=== PATIENT | female | born 1930 | race Caucasian/White ===

== ENCOUNTER 2016-09-16 22:22 | Inpatient (IN) | payer MEDICARE, MEDICAID ==
[~2016-09-16] VITALS: Ht 158.8 cm; Wt 67.7 kg
[~2016-09-16 22:22] MED LIST: CLOP75TA PO; DIOV80TA2 PO; FURO20 PO; GLIM1TAB PO; ISOS20TA38 PO; LANSO15 PO; METO25 PO; ROSU40 PO; TRAM100T19 PO
[2016-09-16 22:33] VITALS: BP 198/103; PULSE 101; RESP 21; TEMP 97.5; O2SAT 95
[2016-09-16] MEDS ORDERED: ONDANSETRON HCL 4 MG/2 ML VIAL IVP ONE (23:00)
[2016-09-16] MEDS ORDERED: SODIUM CHLORIDE 0.9% FLUSH 10 ML FLUSH IV FLUSH PRN (23:00)
[2016-09-16 23:13] LABS: AUTOMATED NEUTROPHIL # 10.1 TH/MM3 (1.8-7.7); BASOPHIL # 0.1 TH/MM3 (0-0.2); BASOPHIL % 0.6 % (0.0-2.0); EOSINOPHIL # 0.1 TH/MM3 (0-0.4); EOSINOPHIL % 0.6 % (0.0-4.0); LYMPH % 17.9 % (9.0-44.0); LYMPHOCYTE # 2.4 TH/MM3 (1.0-4.8); MEAN CELL VOLUME 85.6 FL (80.0-100.0); MEAN CORPUSCULAR HEMOGLOBIN 28.8 PG (27.0-34.0); MEAN CORPUSCULAR HGB CONC 33.7 % (32.0-36.0); MONO % 6.3 % (0.0-8.0); NEUT % 74.6 % (16.0-70.0); PLATELET COUNT 306 TH/MM3 (150-450); RED BLOOD COUNT 4.09 MIL/MM3 (4.00-5.30); RED CELL DISTRIBUTION WIDTH 16.8 % (11.6-17.2); WHITE BLOOD COUNT 13.6 TH/MM3 (4.0-11.0)
[2016-09-16 23:16] LABS: HEMO FLAGS AUTO DIFF
[2016-09-16] MEDS ORDERED: MORPHINE SULFATE 4 MG/ML INJ IV PUSH ONE (23:30)
[2016-09-16] MEDS ORDERED: SODIUM CHLORID 0.9% 500 ML INJ 500 ML IV ONE (23:30)
[2016-09-16 23:36] VITALS: RESP 18; O2SAT 95
[2016-09-16 23:41] LABS: ALKALINE PHOSPHATASE 63 U/L (45-117); ALT (GPT) 19 U/L (10-53); ANION GAP 7 MEQ/L (5-15); AST (GOT) 27 U/L (15-37); BICARBONATE 26.7 MEQ/L (21.0-32.0); BLOOD UREA NITROGEN 15 MG/DL (7-18); CHLORIDE 89 MEQ/L (98-107); GLOMERULAR FILTRATION RATE 61 ML/MIN (>89); TOTAL BILIRUBIN ADULT 0.3 MG/DL (0.2-1.0)
[2016-09-16 23:42] LABS: POTASSIUM 4.7 MEQ/L (3.5-5.1)
[2016-09-16 23:45] LABS: SODIUM (NA) 123 MEQ/L (136-145)
[2016-09-16 23:57] VITALS: BP 164/104; PULSE 100; RESP 18; O2SAT 95
[2016-09-17] VITALS (21 sets, daily range): BP systolic 118–204; BP diastolic 59–96; PULSE 60–120; RESP 16–34; TEMP 97.4–98.3; O2SAT 95–100
[2016-09-17] MEDS ORDERED: KETOROLAC TROMETHAMINE 30 MG/ML (IVP) VIAL IV PUSH ONE (00:30)
[2016-09-17 00:42] LABS: SCAN/DIFF AUTO DIFF CONFIRMED
[2016-09-17 00:44] LABS: BLOOD, URINE NEG (NEG); COMMENT (UR) CULT NOT INDICATED; CULTURE IF INDICATED CULT NOT INDICATED; GLUCOSE,URINE NEG (NEG); KETONE, URINE NEG (NEG); NITRITE,URINE NEG (NEG); URINE COLOR LIGHT-YELLOW (YELLW/STRAW)
[2016-09-17] MEDS ORDERED: IOHEXOL 350 MG/ML 10 ML VIAL (for RAD DIAG) IV ONE (01:18)
--- NOTE | 2016-09-17 01:29 | RADRPT ---
EXAM DATE/TIME: 09/17/2016 01:15 [facility] COMPARISON: No previous studies available for comparison. INDICATIONS : Abdomen with nausea and vomiting. IV CONTRAST: 85 cc Omnipaque 350 (iohexol) IV ORAL CONTRAST: No oral contrast ingested. RADIATION DOSE: 12.39 CTDIvol (mGy) MEDICAL HISTORY : Cardiovascular disease. Hypertension. Diabetes mellitus type 2. SURGICAL HISTORY : CABG Appendectomy. ENCOUNTER: Initial ACUITY: 1 day PAIN SCALE: 8/10 LOCATION: Bilateral abdomen TECHNIQUE: Volumetric scanning of the abdomen and pelvis was performed. Using automated exposure control and ad justment of the mA and/or kV according to patient size, radiation dose was kept as low as reasonably achievable to obtain optimal diagnostic quality images. FINDINGS: LOWER LUNGS: Status post median sternotomy with mild cardiomegaly and bilateral effusions. There is a moderate-siz ed hiatal hernia. Bilateral cortical scarring is present. LIVER: Homogeneous density without lesion. There is no dilation of the biliary tree. No calcified gallston es. SPLEEN: Normal size without lesion. PANCREAS: Within normal limits. KIDNEYS: Normal in size and shape. There is no mass, stone or hydronephrosis. ADRENAL GLANDS: Within normal limits. VASCULAR: There is no aortic aneurysm. BOWEL/MESENTERY: The stomach, and colon demonstrate no acute abnormality. There are multiple loops of nondilated air- containing small bowel with several small air-fluid levels. There is no free intraperitoneal air or f luid. ABDOMINAL WALL: Within normal limits. RETROPERITONEUM: There is no lymphadenopathy. BLADDER: No wall thickening or mass. REPRODUCTIVE: There is a 2.3 x 2 cm cystic structure in the right adnexa most consistent with an ovarian cystic les ion. INGUINAL: There is no lymphadenopathy or hernia. MUSCULOSKELETAL: Osteopenia, degenerative changes and scoliosis are present. CONCLUSION: 1. Small bilateral pleural effusions. 2. Bilateral renal cortical scarring. 3. Moderate-sized hiatal hernia. 4. Status post median sternotomy with mild cardiomegaly. 5. Nonobstructive bowel gas pattern with multiple loops of nondilated air-containing small bowel keith ral small air-fluid levels which may represent a mild ileus and/or gastroenteritis. 6. Small right ovarian cystic lesion. Frederick Vargas MD on September 17, 2016 at 1:24 Board Certified Radiologist. This report was verified electronically.
[2016-09-17] MEDS ORDERED: DILTIAZEM HCL 25 MG/5 ML VIAL ONE (01:38)
[2016-09-17] MEDS ORDERED: FUROSEMIDE 40 MG/4 ML VIAL ONE (01:41)
[2016-09-17] MEDS ORDERED: MORPHINE SULFATE 4 MG/ML INJ IV PUSH ONE (01:45)
[2016-09-17 02:01] LABS: BLOOD GAS BASE EXCESS -5.6 mmol/L (-2-2); BLOOD GAS CARBOXYHEMOGLOBIN 0.9 % (0-4); BLOOD GAS HCO3 20 mmol/L (22-26); BLOOD GAS METHEMOGLOBIN 0.5 % (0-2); BLOOD GAS O2 HGB SATURATION 95 % (90-100); BLOOD GAS OXYGEN CONTENT 17.1 Vol % (12.0-20.0); BLOOD GAS PCO2 46 mmHg (38-42); BLOOD GAS PO2 87 mmHG (61-120); BLOOD GAS TOTAL HGB 12.8 G/DL (12.0-16.0); TEMP CORR TO 98.6
[2016-09-17 02:02] LABS: CRITICAL VALUE YES; DRAW SITE LT RADIAL; FIO2 35 %; NUMBER OF ARTERIAL PUNCTURES 1; OXYGEN DEVICE BiPAP; STAT YES; ULNAR PULSE PRESENT; VENT SETTINGS IPAP15/EPAP5
[2016-09-17] MEDS: ONDANSETRON HCL 4 MG/2 ML VIAL IV PRN ×3 (02:10→17:20)
[2016-09-17] MEDS ORDERED: APIX5TAB PO (02:14)
[2016-09-17] MEDS ORDERED: DEXI60CA PO (02:14)
[2016-09-17] MEDS ORDERED: ISOS10TA3 PO (02:14)
[2016-09-17] MEDS ORDERED: VALS1TAB64 PO (02:14)
[2016-09-17] MEDS ORDERED: METO50TA PO (02:14)
[2016-09-17] MEDS ORDERED: AMIT8CAP6 PO (02:14)
[2016-09-17] MEDS ORDERED: FURO20TA PO (02:14)
[2016-09-17] MEDS ORDERED: GLIM1TAB PO (02:14)
[2016-09-17] MEDS ORDERED: ZOFR4TAB PO (02:14)
[2016-09-17 02:15] LABS: APTT (PATIENT) 27.3 SEC (24.3-30.1); INTERNATIONAL NORMALIZED RATIO 1.1 RATIO; PROTHROMBIN TIME - PATIENT 11.7 SEC (9.8-11.6)
--- NOTE | 2016-09-17 02:32 | RADRPT ---
EXAM DATE/TIME: 09/17/2016 01:54 [facility] COMPARISON: CHEST SINGLE AP, December 27, 2013, 15:08. INDICATIONS : Shortness of breath. MEDICAL HISTORY : None. SURGICAL HISTORY : None. ENCOUNTER: Initial ACUITY: 1 day PAIN SCORE: 0/10 LOCATION: Bilateral chest FINDINGS: A single AP erect portable view of the chest was obtained and again demonstrates the patient is statu s post median sternotomy for bypass grafting procedure. The heart size is mildly prominent. There are no streaky perihilar and bibasilar opacities. The bony thorax remains intact. CONCLUSION: 1. Mild streaky pulmonary infiltrates which could indicate early pulmonary edema. 2. Status post median sternotomy. Frederick Vargas MD on September 17, 2016 at 2:29 Board Certified Radiologist. This report was verified electronically.
--- NOTE | 2016-09-17 02:52 | PD ---
HPI Chief Complaint: Abdominal Pain Time Seen by Provider: 22:48 Travel History International Travel<30 days: No Contact w/Intl Traveler<30days: No Traveled to known affect area: No History of Present Illness HPI Patient is an 86-year-old female presents emergency Department with abdominal pain fairly generalized. Patient states she's had this in the past but does not know causes it. States she's been having nausea and nonbilious nonbloody vomiting approximately 5 episodes this evening. She denies any diarrhea or constipation. She is in fairly good spirits on arrival. She states the pain is sharp in nature and waxing and waning. She denies any injuries. Denies any chest pain or shortness of breath. PFSH Past Medical History Arthritis: Yes Cerebrovascular Accident: No Diabetes: Yes Patient Takes Glucophage: Yes Diminished Hearing: No Hypertension: Yes Myocardial Infarction: Yes Past Surgical History Appendectomy: Yes Coronary Artery Bypass Graft: Yes (X 4) Social History Alcohol Use: No Tobacco Use: Yes (1 PINCH OF CHEW PER DAY) Substance Use: No Allergies-Medications (Allergen,Severity, Reaction): Coded Allergies: Morphine (Verified Allergy, Severe, 09/16/16) Reported Meds & Prescriptions Reported Meds & Active Scripts Active Reported Zofran (Ondansetron HCl) 4 Mg Tab 4 Mg PO Q6HR PRN Valsartan 80 Mg Tab 80 Mg PO BID Dexilant (Dexlansoprazole) 60 Mg Cap 60 Mg PO DAILY Glimepiride 1 Mg Tab 1 Mg PO DAILY Take with breakfast or first main meal Isosorbide Mononitrate 10 Mg Tab 30 Mg PO DAILY Take 2 doses 7 hours apart. Metoprolol Tartrate 50 Mg Tab 50 Mg PO TID Furosemide 20 Mg Tab 20 Mg PO DAILY Amitiza (Lubiprostone) 8 Mcg Cap 8 Mg PO BID Eliquis (Apixaban) 5 Mg Tab 5 Mg PO BID Review of Systems Except as stated in HPI: all other systems reviewed are Neg Physical Exam Narrative GENERAL: Well-developed well-nourished, quite pleasant in no apparent distress. SKIN: Focused skin assessment warm/dry. HEAD: Atraumatic. Normocephalic. EYES: Pupils equal and round. No scleral icterus. No injection or drainage. ENT: No nasal bleeding or discharge. Mucous membranes pink and moist. NECK: Trachea midline. No JVD. CARDIOVASCULAR: Regular rate and rhythm. No murmur appreciated. RESPIRATORY: No accessory muscle use. Clear to auscultation. Breath sounds equal bilaterally. GASTROINTESTINAL: Abdomen soft, non-tender, nondistended. Hepatic and splenic margins not palpable. No CVA tenderness, no rebound no percussive tenderness. MUSCULOSKELETAL: No obvious deformities. No clubbing. No cyanosis. No edema. NEUROLOGICAL: Awake and alert. No obvious cranial nerve deficits. Motor grossly within normal limits. Normal speech. PSYCHIATRIC: Appropriate mood and affect; insight and judgment normal. Data Data Last Documented VS Vital Signs Date Time Temp Pulse Resp B/P Pulse Ox O2 Delivery O2 Flow Rate FiO2 09/17/16 02:15 83 26 204/96 97 BiPAP 35 09/17/16 00:35 3 09/16/16 22:33 97.5 Orders Complete Blood Count With Diff (09/16/16 22:48) Comprehensive Metabolic Panel (09/16/16 22:48) Lipase (09/16/16 22:48) Urinalysis - C+S If Indicated (09/16/16 22:48) Iv Access Insert/Monitor (09/16/16 22:48) Ecg Monitoring (09/16/16 22:48) Oximetry (09/16/16 22:48) Ondansetron Inj (Zofran Inj) (09/16/16 23:00) Sodium Chloride 0.9% Flush (Ns Flush) (09/16/16 23:00) Electrocardiogram (09/16/16 22:48) Troponin I (09/16/16 22:48) Morphine Inj (Morphine Inj) (09/16/16 23:30) Sodium Chlorid 0.9% 500 Ml Inj (Ns 500 M (09/16/16 23:30) Ct Abd/Pel W Iv Contrast(Rout) (09/17/16 ) Ketorolac Inj (Toradol Inj) (09/17/16 00:30) Lactic Acid (09/17/16 00:41) Iohexol 350 Inj (Omnipaque 350 Inj) (09/17/16 01:18) Morphine Inj (Morphine Inj) (09/17/16 01:45) Electrocardiogram (09/17/16 ) Diltiazem Inj (Cardizem Inj) (09/17/16 01:38) Furosemide Inj (Lasix Inj) (09/17/16 01:41) Act Partial Throm Time (Ptt) (09/17/16 01:53) Prothrombin Time / Inr (Pt) (09/17/16 01:53) Comprehensive Metabolic Panel (09/17/16 01:53) B-Type Natriuretic Peptide (09/17/16 01:53) Troponin I (09/17/16 01:53) Chest, Single Ap (09/17/16 ) Arterial Blood Gas (Abg) (09/17/16 01:51) Admit Order (Ed Use Only) (09/17/16 ) Labs Laboratory Tests Test 09/16/16 09/17/16 09/17/16 09/17/16 23:00 00:31 00:50 01:50 Sodium Level 123 MEQ/L Potassium Level 4.7 MEQ/L Chloride Level 89 MEQ/L Carbon Dioxide Level 26.7 MEQ/L Anion Gap 7 MEQ/L Blood Urea Nitrogen 15 MG/DL Creatinine 0.88 MG/DL Estimat Glomerular Filtration 61 ML/MIN Rate Random Glucose 111 MG/DL Calcium Level 8.7 MG/DL Total Bilirubin 0.3 MG/DL Aspartate Amino Transf 27 U/L (AST/SGOT) Alanine Aminotransferase 19 U/L (ALT/SGPT) Alkaline Phosphatase 63 U/L Troponin I 0.04 NG/ML Total Protein 7.1 GM/DL Albumin 3.3 GM/DL Lipase 132 U/L White Blood Count 13.6 TH/MM3 Red Blood Count 4.09 MIL/MM3 Hemoglobin 11.8 GM/DL Hematocrit 35.0 % Mean Corpuscular Volume 85.6 FL Mean Corpuscular Hemoglobin 28.8 PG Mean Corpuscular Hemoglobin 33.7 % Concent Red Cell Distribution Width 16.8 % Platelet Count 306 TH/MM3 Mean Platelet Volume 8.5 FL Neutrophils (%) (Auto) 74.6 % Lymphocytes (%) (Auto) 17.9 % Monocytes (%) (Auto) 6.3 % Eosinophils (%) (Auto) 0.6 % Basophils (%) (Auto) 0.6 % Neutrophils # (Auto) 10.1 TH/MM3 Lymphocytes # (Auto) 2.4 TH/MM3 Monocytes # (Auto) 0.9 TH/MM3 Eosinophils # (Auto) 0.1 TH/MM3 Basophils # (Auto) 0.1 TH/MM3 CBC Comment AUTO DIFF Differential Comment AUTO DIFF CONFIRMED B-Type Natriuretic Peptide 539 PG/ML Urine Color LIGHT-YELLOW Urine Turbidity CLEAR Urine pH 7.0 Urine Specific [place] 1.005 Urine Protein 30 mg/dL Urine Glucose (UA) NEG mg/dL Urine Ketones NEG mg/dL Urine Occult Blood NEG Urine Nitrite NEG Urine Bilirubin NEG Urine Urobilinogen LESS THAN 2.0 MG/DL Urine Leukocyte Esterase NEG Urine RBC LESS THAN 1 /hpf Urine WBC 2 /hpf Microscopic Urinalysis Comment CULT NOT INDICATED Lactic Acid Level 1.1 mmol/L Prothrombin Time 11.7 SEC Prothromb Time International 1.1 RATIO Ratio Activated Partial 27.3 SEC Thromboplast Time Test 09/17/16 09/17/16 01:51 02:45 Blood Gas Puncture Site LT RADIAL Blood Gas Patient Temperature 98.6 Blood Gas HCO3 20 mmol/L Blood Gas Base Excess -5.6 mmol/L Blood Gas Oxygen Saturation 95 % Arterial Blood pH 7.26 Arterial Blood Partial 46 mmHg Pressure CO2 Arterial Blood Partial 87 mmHG Pressure O2 Arterial Blood Oxygen Content 17.1 Vol % Arterial Blood 0.9 % Carboxyhemoglobin Arterial Blood Methemoglobin 0.5 % Blood Gas Hemoglobin 12.8 G/DL Oxygen Delivery Device BiPAP Blood Gas Ventilator Setting [id number]/[id number] Blood Gas Inspired Oxygen 35 % Sodium Level 123 MEQ/L Potassium Level 4.8 MEQ/L Chloride Level 89 MEQ/L Carbon Dioxide Level 24.9 MEQ/L Anion Gap 9 MEQ/L Blood Urea Nitrogen 15 MG/DL Creatinine 1.03 MG/DL Estimat Glomerular Filtration 51 ML/MIN Rate Random Glucose 206 MG/DL Calcium Level 8.9 MG/DL Total Bilirubin 0.3 MG/DL Aspartate Amino Transf 23 U/L (AST/SGOT) Alanine Aminotransferase 21 U/L (ALT/SGPT) Alkaline Phosphatase 74 U/L Troponin I 0.04 NG/ML Total Protein 7.4 GM/DL Albumin 3.5 GM/DL [facility] Medical Decision Making Medical Screen Exam Complete: Yes Emergency Medical Condition: Yes Interpretation(s) Initial EKG shows atrial fibrillation a rate of 107, left axis deviation, criteria for LVH and a normal R wave progression. Nonspecific ST segment changes. This is an abnormal EKG.. Repeat EKG had oh to 18 after rate control shows age fibrillation a rate of 88, normal axis and normal R-wave progression. No concerning ST segment changes. Limited interpretation secondary to artifact in leads 1 and aVL lead 3 and an overall motion artifact. This an abnormal EKG but nonischemic. Differential Diagnosis Abdominal pain, pancreatitis, cholecystitis, gastritis, gastric enteritis, bowel obstruction less likely. Narrative Course Patient initially calm and comfortable and appears well. Her labs do show a minimally elevated white blood cell count and will pursue a CAT scan. I highly doubt dissection or cardiac etiologies. After the patient's daughter arrived the patient became complaining of some more pain. Initially morphine was ordered for her but she states she did not want this as it makes her very dizzy. She was given Toradol and then went to CAT scan. Approximately 01:30 when she returned from CAT scan she had a change in status. I arrived the bedside dependent patient diaphoretic and gasping for air and stating she was in significant pain all over. She was given morphine. The patient then stated that she was really only short of breath and did not have any pain. She was satting 88 on room air. On reexamine her clear lung sounds are now developed bibasilar rales. Patient does have some JVD is well. Patient daughter states the patient has no history of congestive heart failure but that the patient was told by her soil science technical officer that she has fluid on her lungs needs to take her water pills at all time. The patient's labs had returned and showed a sodium of 123 and the plan was to admit her for hyponatremia at the bare minimum. The patient was placed on nonrebreather was temporizer for the moment. Respiratory arrived and placed on patient on BiPAP at my request. She began to improve slowly over the next 30 minutes. She was given Lasix 40 mg IV cautiously dosing as the patient does have hyponatremia. Chest x-ray did confirm that should patient have developed pulmonary edema. She had only received 500 cc from EMS as well as another 500 cc from [place] which coupled with lying down flat on a stretcher is probably triggered a CHF exacerbation. She was also in atrial fibrillation RVR to rates of 1 5170 after returning from CAT scan. She was given Cardizem loading dose of 20 mg IV. Overall the patient has improved in the emergency department from this change in status. Discussed the results with patient's family and the patient and discussed my concern that the patient does have congestive heart failure. On second revisit the patient states her pain is seemingly improved of her abdomen. Patient was discussed with Dr. Wheatley for admission and he is agreeable. Procedures Procedure Narrative Aggregate critical care time was 35 minutes. Time to perform other separately billable procedures was not included in the critical care time. My time did not include minutes spent treating any other patients simultaneously or on activities that did not directly contribute to the patient's treatment. The services I provided to this patient were to treat and/or prevent clinically significant deterioration that could result in: , disability, organ failure. I provided critical care services requiring my management, as noted below: Chart data review, documentation time, medication orders and management, vital sign assessments/reviewing monitor data, ordering and reviewing lab tests, ordering and interpreting/reviewing x-rays and diagnostic studies, care of the patient and discussion of the patient with the admitting physicians. Diagnosis Primary Impression: Acute respiratory failure with hypoxia Additional Impressions: Pulmonary edema Abdominal pain Admitting Information Admitting Physician Requests: Admit Condition: Christoph Roldan MD September 17, 2016 02:52
[2016-09-17 03:20] LABS: ALKALINE PHOSPHATASE 74 U/L (45-117); ALT (GPT) 21 U/L (10-53); ANION GAP 9 MEQ/L (5-15); AST (GOT) 23 U/L (15-37); BICARBONATE 24.9 MEQ/L (21.0-32.0); BLOOD UREA NITROGEN 15 MG/DL (7-18); CHLORIDE 89 MEQ/L (98-107); GLOMERULAR FILTRATION RATE 51 ML/MIN (>89); POTASSIUM 4.8 MEQ/L (3.5-5.1); TOTAL BILIRUBIN ADULT 0.3 MG/DL (0.2-1.0)
[2016-09-17 03:22] LABS: SODIUM (NA) 123 MEQ/L (136-145)
[2016-09-17] MEDS ORDERED: MORPHINE SULFATE 4 MG/ML INJ IV PRN (03:45)
[2016-09-17] MEDS ORDERED: GLUCAGON 1 MG/ML VIAL OTHER PRN (03:45)
[2016-09-17] MEDS ORDERED: SODIUM CHLORIDE 0.9% FLUSH 10 ML FLUSH PRN (03:45)
[2016-09-17] MEDS ORDERED: CHLORHEXIDINE GLUCONATE 2 % 1 PACK (2 CLOTHS) TOP PRN (03:45)
[2016-09-17] MEDS ORDERED: ACETAMINOPHEN 325 MG TAB PO PRN (03:45)
[2016-09-17] MEDS ORDERED: DEXTROSE 50% IN WATER 50 ML VIAL(D50) IV PRN (03:45)
[2016-09-17] MEDS ORDERED: TEMAZEPAM 15 MG CAP PO PRN (03:45)
[2016-09-17] MEDS ORDERED: RESP: ALBUTEROL 2.5 MG/IPRATROPIUM 0.5 MG NEB (PRN) INH (03:45)
[2016-09-17] MEDS ORDERED: MISCELLANEOUS NURSING INFORMATION XX SCH (03:45)
[2016-09-17] MEDS ORDERED: METOCLOPRAMIDE HCL 10 MG/2 ML VIAL IV PRN (03:45)
--- NOTE | 2016-09-17 03:46 | HHI.HP ---
HPI Service Critical Care Medicine Primary Care Physician Kamari Felix MD Admission Diagnosis Pulmonary Edema, Afib RVR, Hyponatremia, Hypoxic respiratory failure Diagnosis: Travel History International Travel<30 Days: No Contact w/Intl Traveler <30 Da: No Traveled to Known Affected Are: No History of Present Illness 86-year-old female with history of hypertension dyslipidemia diabetes status post CABG 4 vessels presented with abdominal pain. Patient was taken to CAT scan that shows nonobstructive pattern with mild ileus. She was started on IV fluids resuscitation, however developed rapid A. fib with RVR mild to moderate pleural pulmonary edema on the x-ray and respiratory distress requiring diuresis and BiPAP. Review of Systems ROS Unable to obtain patient is on facemask BiPAP Past Family Social History Allergies: Coded Allergies: Morphine (Verified Allergy, Severe, 09/16/16) Past Medical History Arthritis Diabetes Hypertension Atrial fibrillation Coronary artery disease post Myocardial Infarction Past Surgical History Appendectomy Coronary Artery Bypass Graft Reported Medications Reported Meds & Active Scripts Active Reported Zofran (Ondansetron HCl) 4 Mg Tab 4 Mg PO Q6HR PRN Valsartan 80 Mg Tab 80 Mg PO BID Dexilant (Dexlansoprazole) 60 Mg Cap 60 Mg PO DAILY Glimepiride 1 Mg Tab 1 Mg PO DAILY Take with breakfast or first main meal Isosorbide Mononitrate 10 Mg Tab 30 Mg PO DAILY Take 2 doses 7 hours apart. Metoprolol Tartrate 50 Mg Tab 50 Mg PO TID Furosemide 20 Mg Tab 20 Mg PO DAILY Amitiza (Lubiprostone) 8 Mcg Cap 8 Mg PO BID Eliquis (Apixaban) 5 Mg Tab 5 Mg PO BID Active Ordered Medications Current Medications Medications (Trade) Dose Ordered Sig/Bill Route PRN Reason Start Time Stop Time Status Last Admin Dose Admin Apixaban (Eliquis) 5 mg BID PO 09/17/16 09:00 Future Hold Isosorbide Mononitrate (Ismo) 30 mg DAILY@07 PO 09/17/16 07:00 Pantoprazole Sodium (Protonix) 40 mg DAILY PO 09/17/16 09:00 Sodium Chloride (NS Flush) 2 ml UNSCH PRN .XX FLUSH AFTER USING IV ACCESS 09/17/16 03:45 Sodium Chloride (NS Flush) 2 ml BID .XX 09/17/16 09:00 Acetaminophen (Tylenol) 650 mg Q6H PRN PO PAIN 1-10 AND/OR FEVER >101F 09/17/16 03:45 Morphine Sulfate (Morphine Inj) 2 mg Q2H PRN IV PAIN SCALE 6 TO 10 09/17/16 03:45 Ondansetron HCl (Zofran Inj) 4 mg Q6H PRN IV NAUSEA OR VOMITING 09/17/16 03:45 09/17/16 02:10 Metoclopramide HCl (Reglan Inj) 10 mg Q6H PRN IV NAUSEA OR VOMITING 09/17/16 03:45 Docusate Sodium (Colace) 100 mg BID PO 09/17/16 09:00 Temazepam (Restoril) 15 mg HS PRN PO INSOMNIA 09/17/16 03:45 Heparin Sodium (Porcine) (Heparin Inj) 5,000 units Q12H SQ 09/17/16 04:00 Miscellaneous Information 1 Q361D XX 09/17/16 03:45 Chlorhexidine Gluconate (Chlorhexidine 2% Cloth) 3 pack Taper DAILY@04 TOP 09/17/16 04:00 09/13/17 03:59 Chlorhexidine Gluconate (Chlorhexidine 2% Cloth) 3 pack UNSCH PRN TOP HYGIENIC CARE 09/17/16 03:45 Sodium Chloride (Sodium Chloride) 1 gm QID PO 09/17/16 09:00 Dextrose (D50w (Vial) Inj) 50 ml UNSCH PRN IV HYPOGLYCEMIA-SEE COMMENTS 09/17/16 03:45 Glucagon (Glucagon Inj) 1 mg UNSCH PRN OTHER HYPOGLYCEMIA-SEE COMMENTS 09/17/16 03:45 Diltiazem HCl 30 mg 30 mg QID PO 09/17/16 09:00 Potassium Chloride 100 ml @ 50 mls/hr Q2H PRN IV For Potassium 2.8 - 3.2 mEq/L 09/17/16 04:00 Potassium Chloride (KCl 20 Meq Premix Inj) 100 ml @ 50 mls/hr Q2H PRN IV For Potassium 2.8 - 3.2 mEq/L 09/17/16 04:00 Potassium Bicarb/ Potassium Chloride 50 meq 50 meq UNSCH PRN PO For Potassium 3.3 - 3.5 mEq/L 09/17/16 04:00 Potassium Chloride 100 ml @ 25 mls/hr UNSCH PRN IV For Potassium 3.3 - 3.5 mEq/L 09/17/16 04:00 Potassium Chloride 100 ml @ 50 mls/hr Q2H PRN IV For Potassium 3.3 - 3.5 mEq/L 09/17/16 04:00 Magnesium Sulfate/ Sodium Chloride (Magnesium Sulfate Inj/NS Inj) 100 ml @ 50 mls/hr UNSCH PRN IV For Magnesium 0.9 - 1.1 mg/dL 09/17/16 04:00 Magnesium Oxide 800 mg 800 mg UNSCH PRN PO For Magnesium 1.2 - 1.6 mg/dL 09/17/16 04:00 Magnesium Sulfate/ Sodium Chloride (Magnesium Sulfate Inj/NS Inj) 100 ml @ 50 mls/hr UNSCH PRN IV For Magnesium 1.2 - 1.6 mg/dL 09/17/16 04:00 Potassium Phosphate 2000 mg 2,000 mg Q4H PRN PO For Phosphorus < 2.5 mg/dL 09/17/16 04:00 Sodium Phosphate/ Sodium Chloride (Sodium Phosphate Inj/NS 250 ml Inj) 250 ml @ 42 mls/hr UNSCH PRN IV For Phosphorus < 2.5 mg/dL 09/17/16 04:00 Potassium Phosphate (K-Phos) 2,000 mg UNSCH PRN PO/TUBE SEE LABEL COMMENTS 09/17/16 04:00 Family History Noncontributory Social History No alcohol or illicit drug abuse 1 pinch of tobacco daily Physical Exam Vital Signs Vital Signs Date Time Temp Pulse Resp B/P Pulse Ox O2 Delivery O2 Flow Rate FiO2 09/17/16 03:32 77 20 125/68 97 BiPAP 35 09/17/16 02:56 77 20 168/77 97 BiPAP 35 09/17/16 02:15 83 26 204/96 97 BiPAP 35 09/17/16 01:56 85 30 132/71 96 BiPAP 35 09/17/16 01:45 96 35 09/17/16 01:45 95 BiPAP 35 09/17/16 00:35 115 26 95 Nasal Cannula 3 09/16/16 23:57 100 18 164/104 95 Room Air 09/16/16 23:36 18 95 Room Air 09/16/16 22:33 97.5 101 21 198/103 95 Room Air Physical Exam GENERAL: Elderly woman on facemask BiPAP SKIN: Warm and dry. HEAD: Normocephalic. EYES: No scleral icterus. No injection or drainage. NECK: Supple, trachea midline. No JVD or lymphadenopathy. CARDIOVASCULAR: Regular rate and rhythm without murmurs, gallops, or rubs. RESPIRATORY: Breath sounds equal bilaterally. No accessory muscle use. GASTROINTESTINAL: Abdomen soft, non-tender, nondistended. MUSCULOSKELETAL: No cyanosis, or edema. BACK: Nontender without obvious deformity. No CVA tenderness. EXTREMITIES: No clubbing cyanosis or edema Laboratory Laboratory Tests Test 09/16/16 09/17/16 09/17/16 09/17/16 23:00 00:31 00:50 01:50 Sodium Level 123 Potassium Level 4.7 Chloride Level 89 Carbon Dioxide Level 26.7 Anion Gap 7 Blood Urea Nitrogen 15 Creatinine 0.88 Estimat Glomerular Filtration 61 Rate Random Glucose 111 Calcium Level 8.7 Total Bilirubin 0.3 Aspartate Amino Transf 27 (AST/SGOT) Alanine Aminotransferase 19 (ALT/SGPT) Alkaline Phosphatase 63 Troponin I 0.04 Total Protein 7.1 Albumin 3.3 Lipase 132 White Blood Count 13.6 Red Blood Count 4.09 Hemoglobin 11.8 Hematocrit 35.0 Mean Corpuscular Volume 85.6 Mean Corpuscular Hemoglobin 28.8 Mean Corpuscular Hemoglobin 33.7 Concent Red Cell Distribution Width 16.8 Platelet Count 306 Mean Platelet Volume 8.5 Neutrophils (%) (Auto) 74.6 Lymphocytes (%) (Auto) 17.9 Monocytes (%) (Auto) 6.3 Eosinophils (%) (Auto) 0.6 Basophils (%) (Auto) 0.6 Neutrophils # (Auto) 10.1 Lymphocytes # (Auto) 2.4 Monocytes # (Auto) 0.9 Eosinophils # (Auto) 0.1 Basophils # (Auto) 0.1 CBC Comment AUTO DIFF Differential Comment AUTO DIFF CONFIRMED B-Type Natriuretic Peptide 539 Urine Color LIGHT-YELLOW Urine Turbidity CLEAR Urine pH 7.0 Urine Specific [place] 1.005 Urine Protein 30 Urine Glucose (UA) NEG Urine Ketones NEG Urine Occult Blood NEG Urine Nitrite NEG Urine Bilirubin NEG Urine Urobilinogen LESS THAN 2.0 Urine Leukocyte Esterase NEG Urine RBC LESS THAN 1 Urine WBC 2 Microscopic Urinalysis Comment CULT NOT INDICATED Lactic Acid Level 1.1 Prothrombin Time 11.7 Prothromb Time International 1.1 Ratio Activated Partial 27.3 Thromboplast Time Test 09/17/16 09/17/16 01:51 02:45 Blood Gas Puncture Site LT RADIAL Blood Gas Patient Temperature 98.6 Blood Gas HCO3 20 Blood Gas Base Excess -5.6 Blood Gas Oxygen Saturation 95 Arterial Blood pH 7.26 Arterial Blood Partial 46 Pressure CO2 Arterial Blood Partial 87 Pressure O2 Arterial Blood Oxygen Content 17.1 Arterial Blood 0.9 Carboxyhemoglobin Arterial Blood Methemoglobin 0.5 Blood Gas Hemoglobin 12.8 Oxygen Delivery Device BiPAP Blood Gas Ventilator Setting [id number]/[id number] Blood Gas Inspired Oxygen 35 Sodium Level 123 Potassium Level 4.8 Chloride Level 89 Carbon Dioxide Level 24.9 Anion Gap 9 Blood Urea Nitrogen 15 Creatinine 1.03 Estimat Glomerular Filtration 51 Rate Random Glucose 206 Calcium Level 8.9 Total Bilirubin 0.3 Aspartate Amino Transf 23 (AST/SGOT) Alanine Aminotransferase 21 (ALT/SGPT) Alkaline Phosphatase 74 Troponin I 0.04 Total Protein 7.4 Albumin 3.5 Result Diagram: 09/16/16 2300 09/17/16 0245 Imaging Last 24 hours Impressions Chest X-Ray 09/17/16 0000 Signed Impressions: Service Date/Time: Saturday, September 17, 2016 01:54 - CONCLUSION: 1. Mild streaky pulmonary infiltrates which could indicate early pulmonary edema. 2. Status post median sternotomy. Frederick Vargas MD Abdomen/Pelvis CT 09/17/16 0000 Signed Impressions: Service Date/Time: Saturday, September 17, 2016 01:15 - CONCLUSION: 1. Small bilateral pleural effusions. 2. Bilateral renal cortical scarring. 3. Moderate-sized hiatal hernia. 4. Status post median sternotomy with mild cardiomegaly. 5. Nonobstructive bowel gas pattern with multiple loops of nondilated air-containing small bowel several small air-fluid levels which may represent a mild ileus and/or gastroenteritis. 6. Small right ovarian cystic lesion. Frederick Vargas MD Assessment and Plan Assessment and Plan Respiratory failure - Pulmonary edema - Due to uncontrolled rapid A. fib - Rate controlled - Gentle diuresis - Continue BiPAP as needed - 2-D echo a.m. Rapid A. fib with RVR - Corrected with Cardizem IV push bolus - Resume home dose of metoprolol - Continue anticoagulation with Eliquis Abdominal pain - Improved - CT abdomen negative - Dulcolax Colace for bowel regimen - Supportive care Diabetes mellitus - Insulin sliding scale DVT GI prophylaxis - Eliquis/PPI Critical Care: The total critical care time was 35 minutes. Time to perform other separately billable procedures was not included in the critical care time. Kale Zelaya MD September 17, 2016 03:46
[2016-09-17 03:53] LABS: BLOOD GAS BASE EXCESS -3.6 mmol/L (-2-2); BLOOD GAS CARBOXYHEMOGLOBIN 0.9 % (0-4); BLOOD GAS HCO3 21 mmol/L (22-26); BLOOD GAS METHEMOGLOBIN 0.4 % (0-2); BLOOD GAS O2 HGB SATURATION 97 % (90-100); BLOOD GAS OXYGEN CONTENT 16.5 Vol % (12.0-20.0); BLOOD GAS PCO2 39 mmHg (38-42); BLOOD GAS PO2 95 mmHG (61-120); BLOOD GAS TOTAL HGB 12.1 G/DL (12.0-16.0); CRITICAL VALUE NO; OXYGEN DEVICE BiPAP; TEMP CORR TO 98.6
[2016-09-17 03:54] LABS: DRAW SITE LT RADIAL; FIO2 35 %; NUMBER OF ARTERIAL PUNCTURES 1; STAT YES; ULNAR PULSE PRESENT; VENT SETTINGS IPAP15/EPAP5
[2016-09-17] MEDS ORDERED: MAGNESIUM SULFATE INJ 4 GM in SODIUM CHLORIDE 0.9% INJ 92 ML IV PRN (04:00)
[2016-09-17] MEDS ORDERED: POTASSIUM CHLOR 40 MEQ PREMIX 100 ML IV PRN ×2 (04:00)
[2016-09-17] MEDS ORDERED: POTASSIUM CHLORIDE 25 MEQ EFFERVESCENT TAB PO PRN (04:00)
[2016-09-17] MEDS: CHLORHEXIDINE GLUCONATE 2 % 1 PACK (2 CLOTHS) TOP SCH (04:00)
[2016-09-17] MEDS ORDERED: POTASSIUM PHOSPHATE MONOBASIC 500 MG TAB PO PRN (04:00)
[2016-09-17] MEDS ORDERED: SODIUM PHOSPHATE INJ 30 MMOL in SODIUM CHLOR 0.9% 250 ML INJ 240 ML IV PRN (04:00)
[2016-09-17] MEDS ORDERED: POTASSIUM CHLOR 20 MEQ PREMIX 100 ML IV PRN ×2 (04:00)
[2016-09-17] MEDS ORDERED: MAGNESIUM OXIDE 400 MG TAB PO PRN (04:00)
[2016-09-17] MEDS ORDERED: POTASSIUM PHOSPHATE MONOBASIC 500 MG TAB PO/TUBE PRN (04:00)
[2016-09-17] MEDS ORDERED: MAGNESIUM SULFATE INJ 2 GM in SODIUM CHLORIDE 0.9% INJ 96 ML IV PRN (04:00)
[2016-09-17] MEDS ORDERED: FUROSEMIDE 20 MG/2 ML VIAL IV PUSH ONE (04:15)
[2016-09-17] MEDS ORDERED: DILTIAZEM HCL 25 MG/5 ML VIAL IV ONE (04:15)
[2016-09-17] MEDS: HEPARIN SODIUM - SQ 10,000 UNITS/ML VIAL SQ SCH ×2 (05:18→15:41)
[2016-09-17] MEDS: INSULIN ASPART SUPPLEMENTAL SCALE SQ SCH ×3 (06:50→15:41)
[2016-09-17] MEDS ORDERED: LABETALOL HCL 100 MG/20 ML VIAL IV PUSH PRN (07:15)
[2016-09-17] MEDS ORDERED: ONDANSETRON ODT 4 MG TAB PO PRN (07:30)
[2016-09-17] MEDS: METOPROLOL TARTRATE 50 MG TAB PO SCH ×3 (08:36→17:20)
[2016-09-17] MEDS: DOCUSATE SODIUM 100 MG CAP PO SCH ×2 (08:36→22:36)
[2016-09-17] MEDS: PANTOPRAZOLE SOD 40 MG DELAYED RELEASE TAB PO SCH (08:36)
[2016-09-17] MEDS: DILTIAZEM HCL 30 MG TAB PO SCH ×4 (08:36→22:35)
[2016-09-17] MEDS: SODIUM CHLORIDE 1 GRAM TAB PO SCH ×4 (08:36→22:36)
[2016-09-17] MEDS: SODIUM CHLORIDE 0.9% FLUSH 10 ML FLUSH SCH ×2 (08:39→22:40)
[2016-09-17] MEDS ORDERED: APIXABAN 5 MG TABLET PO SCH (09:00)
--- NOTE | 2016-09-17 10:24 | EKG ---
Date Performed: 09/17/2016 Time Performed: 02:19:34 PTAGE: 86 years EKG: ATRIAL FIBRILLATION MODERATE INTRAVENTRICULAR CONDUCTION DELAY NONSPECIFIC ST & T-WAVE ABNO RMALITY ABNORMAL RHYTHM ECG PREVIOUS TRACING : 09/16/2016 23.01 DOCTOR: Brett Porter Interpretating Date/Time 09/17/2016 10:20:10
--- NOTE | 2016-09-17 10:25 | EKG ---
Date Performed: 09/17/2016 Time Performed: 01:34:42 PTAGE: 86 years EKG: ATRIAL FIBRILLATION WITH RAPID VENTRICULAR RESPONSE MODERATE INTRAVENTRICULAR CONDUCTION DE LAY MODERATE ST DEPRESSION ABNORMAL ECG NO PREVIOUS TRACING DOCTOR: Brett Porter Interpretating Date/Time 09/17/2016 10:20:17
--- NOTE | 2016-09-17 10:26 | EKG ---
Date Performed: 09/16/2016 Time Performed: 23:01:43 PTAGE: 86 years EKG: ATRIAL FIBRILLATION WITH RAPID VENTRICULAR RESPONSE MODERATE INTRAVENTRICULAR CONDUCTION DE LAY MINIMAL ST DEPRESSION ABNORMAL RHYTHM ECG PREVIOUS TRACING : 12/27/2013 15.14 DOCTOR: Brett Porter Interpretating Date/Time 09/17/2016 10:21:26
[2016-09-17] MEDS: VALSARTAN 80 MG TAB PO SCH ×2 (10:40→22:36)
[2016-09-17] MEDS: ISOSORBIDE MONONITRATE 20 MG TAB PO SCH (10:40)
[2016-09-17] MEDS ORDERED: MIRTAZAPINE 15 MG TAB PO ONE (12:00)
[2016-09-17] MEDS ORDERED: KETOROLAC TROMETHAMINE 60 MG/2 ML (IM) VIAL IM ONE (12:00)
--- NOTE | 2016-09-17 17:09 | MB ---
cc: TEO DENT MD DATE OF CONSULTATION 09/17/16 HISTORY OF PRESENT ILLNESS An 86-year-old white female with a history of four vessel bypass, presented with abdominal pain. She has been evaluated by GI recently. She has a previous history of atrial fibrillation. She was found to be in atrial fibrillation with rapid ventricular response. Her chest x-ray shows pulmonary edema. She was diuresed and started on BiPAP. She is now feeling better. She has not had any chest pain. Her shortness of breath is improved. PAST MEDICAL HISTORY Positive for: 1. Four vessel bypass. 3. Paroxysmal atrial fibrillation. 4. Hypertension. 5. Diabetes mellitus. 6. Arthritis. 7. History of myocardial infarction. 8. History of appendectomy. MEDICATION 1. Zofran. 2. Valsartan. 3. Dexilant. 4. Glimepiride. 5. Isosorbide mononitrate. 6. Metoprolol 50 milligrams t.i.d. 7. Furosemide. 9. Eliquis 5 milligrams twice a day. ALLERGIES MORPHINE. SOCIAL HISTORY The patient does not smoke. She does not drink alcohol. FAMILY HISTORY Negative for heart disease. REVIEW OF SYSTEMS Otherwise negative. PHYSICAL EXAMINATION VITAL SIGNS: Blood pressure 141/72, pulse 74. HEENT: Negative. NECK: 2+ carotid upstrokes. No bruits. LUNGS: Clear. HEART: Irregular with no murmur, gallop. ABDOMEN: Soft. No bruits. EXTREMITIES: Without edema. 2+ distal pulses. There are scars after vein harvesting on lower extremities. NEUROLOGIC: Grossly nonfocal. ELECTROCARDIOGRAM EKG was reviewed and showed atrial fibrillation, normal axis, mild intraventricular conduction delay and increased ventricular response. Follow up EKG shows atrial fibrillation with controlled ventricular response. LABORATORY DATA Hemoglobin 11.8, potassium 4.8, creatinine 1.0, AST 23, ALT 21. Troponin 0.04, 0.05 and 0.05. BNP 539. DIAGNOSIS 1. Atrial fibrillation with rapid ventricular response. 2. Coronary artery disease, history of coronary bypass. 3. Pulmonary edema. 4. Respiratory failure. 5. Abdominal pain. 6. Diabetes mellitus. 7. Hypertension. DISPOSITION Ms. Del Cid will be monitored on telemetry. Her heart rate is now controlled. She has not had any angina. Her heart failure symptoms are improved with diuresis. Her abdominal pain is also improved. She has been undergoing GI evaluation. She will follow with her house nurse in [place], in his office, as an outpatient. MD WESTLEY Painting/EVELYN /4:26 PM /4:43 PM JOSE F
[2016-09-17] MEDS ORDERED: LORazepam 1 MG TAB PO PRN (22:15)
[2016-09-17] MEDS ORDERED: HALOPERIDOL LACTATE 5 MG/ML AMP IM PRN (22:15)
[2016-09-17] MEDS ORDERED: LORazepam 2 MG TAB PO PRN (22:15)
[2016-09-17] MEDS ORDERED: LORazepam 2 MG/ML VIAL IV PUSH PRN ×4 (22:15)
[2016-09-17] MEDS ORDERED: FLUMAZENIL 0.5 MG/5 ML VIAL IV PUSH PRN (22:15)
[2016-09-18] VITALS: BP 124/72; PULSE 93; RESP 16; TEMP 98; O2SAT 96
[2016-09-18 04:00] VITALS: BP 140/66; PULSE 87; RESP 16; TEMP 98; O2SAT 96
[2016-09-18] MEDS: CHLORHEXIDINE GLUCONATE 2 % 1 PACK (2 CLOTHS) TOP SCH (04:00)
[2016-09-18 05:32] LABS: AUTOMATED NEUTROPHIL # 6.7 TH/MM3 (1.8-7.7); BASOPHIL % 0.5 % (0.0-2.0); EOSINOPHIL # 0.1 TH/MM3 (0-0.4); EOSINOPHIL % 0.9 % (0.0-4.0); HEMATOCRIT 30.3 % (35.0-46.0); LYMPH % 24.6 % (9.0-44.0); LYMPHOCYTE # 2.5 TH/MM3 (1.0-4.8); MEAN CELL VOLUME 85.1 FL (80.0-100.0); MONO % 7.7 % (0.0-8.0); NEUT % 66.3 % (16.0-70.0); PLATELET COUNT 247 TH/MM3 (150-450); RED BLOOD COUNT 3.56 MIL/MM3 (4.00-5.30); RED CELL DISTRIBUTION WIDTH 17.1 % (11.6-17.2); WHITE BLOOD COUNT 10.1 TH/MM3 (4.0-11.0)
[2016-09-18 05:42] LABS: HEMO FLAGS AUTO DIFF; INTERNATIONAL NORMALIZED RATIO 1.1 RATIO; PROTHROMBIN TIME - PATIENT 11.7 SEC (9.8-11.6)
[2016-09-18] MEDS: HEPARIN SODIUM - SQ 10,000 UNITS/ML VIAL SQ SCH (05:45)
[2016-09-18] MEDS: ISOSORBIDE MONONITRATE 20 MG TAB PO SCH (05:49)
[2016-09-18 06:13] LABS: ALKALINE PHOSPHATASE 51 U/L (45-117); ALT (GPT) 16 U/L (10-53); ANION GAP 10 MEQ/L (5-15); AST (GOT) 15 U/L (15-37); BICARBONATE 25.2 MEQ/L (21.0-32.0); BLOOD UREA NITROGEN 19 MG/DL (7-18); CHLORIDE 93 MEQ/L (98-107); GLOMERULAR FILTRATION RATE 49 ML/MIN (>89); MAGNESIUM 1.9 MG/DL (1.5-2.5); POTASSIUM 4.6 MEQ/L (3.5-5.1); SODIUM (NA) 128 MEQ/L (136-145); TOTAL BILIRUBIN ADULT 0.5 MG/DL (0.2-1.0)
[2016-09-18 06:45] LABS: PLATELET ESTIMATE SMEAR NORMAL (NORMAL); PLATELET MORPHOLOGY NORMAL (NORMAL); SCAN/DIFF AUTO DIFF CONFIRMED
[2016-09-18] MEDS ORDERED: INSULIN ASPART SUPPLEMENTAL SCALE SQ SCH (07:00)
--- NOTE | 2016-09-18 07:20 | RADRPT ---
EXAM DATE/TIME: 09/18/2016 06:48 [facility] COMPARISON: CHEST SINGLE AP, September 17, 2016, 1:54. INDICATIONS : Coughing, respiratory disease MEDICAL HISTORY : Cardiovascular disease. Gastroesophageal reflux disease. SURGICAL HISTORY : CABG. ENCOUNTER: Subsequent ACUITY: 2 days PAIN SCORE: 0/10 LOCATION: Bilateral chest FINDINGS: There is evidence for prior median sternotomy. cardiomegaly is seen to a slight degree. There is hazi ness to both lung bases may be technical, however slight bilateral lower lung infiltrate is difficult to exclude. CONCLUSION: Possible mild bibasilar infiltrate. Tyson Tellez MD on September 18, 2016 at 7:17 Board Certified Radiologist. This report was verified electronically.
[2016-09-18 08:00] VITALS: BP 180/84; PULSE 94; RESP 16; TEMP 98.8; O2SAT 97
[2016-09-18] MEDS ORDERED: FOLIC ACID 1 MG TAB PO SCH (09:00)
[2016-09-18] MEDS: SODIUM CHLORIDE 0.9% FLUSH 10 ML FLUSH SCH (09:00)
[2016-09-18] MEDS ORDERED: MULTIVITAMINS/MINERALS THERAPEUTIC TAB PO SCH (09:00)
[2016-09-18] MEDS ORDERED: THIAMINE HCL 100 MG TAB PO SCH (09:00)
[2016-09-18] MEDS: METOPROLOL TARTRATE 50 MG TAB PO SCH (09:03)
[2016-09-18] MEDS: VALSARTAN 80 MG TAB PO SCH (09:03)
[2016-09-18] MEDS: DILTIAZEM HCL 30 MG TAB PO SCH (09:04)
[2016-09-18] MEDS: DOCUSATE SODIUM 100 MG CAP PO SCH (09:04)
[2016-09-18] MEDS: PANTOPRAZOLE SOD 40 MG DELAYED RELEASE TAB PO SCH (09:04)
[2016-09-18] MEDS: SODIUM CHLORIDE 1 GRAM TAB PO SCH (09:04)
[2016-09-18] MEDS ORDERED: DILT31TA PO (11:32)
[2016-09-18] MEDS ORDERED: MIRTA15 PO (11:32)
[2016-09-18] MEDS ORDERED: VITA100T2 PO (11:32)
[2016-09-18] MEDS ORDERED: SODI1TAB PO (11:32)
--- NOTE | 2016-09-18 11:33 | HHI.DCPOC ---
Discharge Care Plan Diagnosis: (1) Abdominal pain (2) Acute respiratory failure with hypoxia (3) Pulmonary edema Your Health Problems Are: Difficulty with ADL Exercise Tolerance Goals to Promote Your Health * To prevent worsening of your condition and complications * To maintain your health at the optimal level Directions to Meet Your Goals Take your medications as prescribed Follow your dietary instruction Follow activity as directed Keep your appointments as scheduled Take your immunizations and boosters as scheduled If your symptoms worsen call your PCP, if no PCP go to Urgent Care Center or Emergency Room Smoking is Dangerous to Your Health. Avoid second hand smoke Call the 24-hour hour crisis hotline for domestic abuse at Micah Montiel MD September 18, 2016 11:33
--- NOTE | 2016-09-18 11:40 | HHI.PR ---
Subjective Remarks Consulted by critical care medicine for transfer care medical management. Discussed with Dr. Carbone. Follow-up ileus, A. fib and acute respiratory failure. States she is doing okay denies abdominal pain passing gas and tolerating by mouth. Telemetry shows A. fib with controlled ventricular response follows a rn practitioner outpatient. Denies shortness of breath ambulating on room air. Discussed with patient and daughter regarding low sodium. She has history of hyponatremia. Her sodium level is improving. She denies any symptoms related to hyponatremia. Advised to undergo head CT however patient refuses. She wants to go home. She's been advised to refrain from use of narcotics, benzodiazepines and no driving Objective Vitals Vital Signs Date Time Temp Pulse Resp B/P Pulse Ox O2 Delivery O2 Flow Rate FiO2 09/18/16 08:00 Room Air 09/18/16 08:00 98.8 94 16 180/84 97 09/18/16 04:00 98.0 87 16 140/66 96 09/18/16 00:00 98.0 93 16 124/72 96 09/17/16 20:30 Room Air 09/17/16 20:19 96 09/17/16 20:00 97.8 84 16 118/76 97 09/17/16 18:18 96 21 09/17/16 16:00 98.3 87 24 159/84 96 09/17/16 13:30 97.6 74 24 141/72 96 09/17/16 12:49 25 09/17/16 12:00 60 09/17/16 12:00 97.9 60 27 123/75 97 I/O 09/17/16 09/17/16 09/17/16 09/18/16 09/18/16 09/18/16 07:00 15:00 23:00 07:00 15:00 23:00 Intake Total 500 ml 200 ml 120 ml Output Total 1250 ml 550 ml Balance -750 ml -350 ml 120 ml Intake Oral 0 ml 200 ml 120 ml IV Total 500 ml 0 ml Output Urine Total 1250 ml 550 ml # Voids 1 # Bowel Movements 0 0 Result Diagram: 09/18/16 0512 09/18/16 0512 Imaging Last Impressions Chest X-Ray 09/18/16 0000 Signed Impressions: Service Date/Time: September 06:48 - CONCLUSION: Possible mild bibasilar infiltrate. Tyson Tellez MD Abdomen/Pelvis CT 09/17/16 0000 Signed Impressions: Service Date/Time: Saturday, September 17, 2016 01:15 - CONCLUSION: 1. Small bilateral pleural effusions. 2. Bilateral renal cortical scarring. 3. Moderate-sized hiatal hernia. 4. Status post median sternotomy with mild cardiomegaly. 5. Nonobstructive bowel gas pattern with multiple loops of nondilated air-containing small bowel several small air-fluid levels which may represent a mild ileus and/or gastroenteritis. 6. Small right ovarian cystic lesion. Frederick Vargas MD Objective Remarks GENERAL: Well-developed obese in no distress SKIN: Warm and dry. HEAD: Atraumatic. Normocephalic. EYES: Pupils equal and round. No scleral icterus. No injection or drainage. ENT: No nasal bleeding or discharge. Mucous membranes pink and moist. NECK: Trachea midline. No JVD. CARDIOVASCULAR: Regular rate and rhythm. RESPIRATORY: No accessory muscle use. Clear to auscultation. Breath sounds equal bilaterally. GASTROINTESTINAL: Abdomen soft, non-tender, nondistended. MUSCULOSKELETAL: Extremities without clubbing, cyanosis, or edema. No obvious deformities. NEUROLOGICAL: Awake and alert. No obvious cranial nerve deficits. Motor grossly within normal limits. Five out of 5 muscle strength in the arms and legs. Normal speech. PSYCHIATRIC: Appropriate mood and affect; insight and judgment normal. Procedures None A/P Problem List: (1) Acute respiratory failure with hypoxia ICD Code: J96.01 Status: Acute (2) Abdominal pain ICD Code: R10.9 Status: Acute (3) Pulmonary edema ICD Code: J81.1 Status: Acute Assessment and Plan Respiratory failure. Resolved - Pulmonary edema secondary to A. fib. Resolved - Rate controlled - Gentle diuresis - Status post BiPAP as needed - 2-D echo results pending Rapid A. fib with RVR - Corrected with Cardizem IV push bolus - Resume home dose of metoprolol and Cardizem - Continue anticoagulation with Eliquis Abdominal pain likely related to ileus. Avoid narcotics - Improved - CT abdomen noted - Dulcolax Colace for bowel regimen - Supportive care Diabetes mellitus - Insulin sliding scale Hyponatremia acute on chronic. Improving. Patient asymptomatic. Refuses head CT. Continue sodium tabs follow-up outpatient DVT GI prophylaxis - Eliquis/PPI Discharge Planning Stable for discharge Micah Montiel MD September 18, 2016 11:40
--- NOTE | 2016-09-18 11:47 | HHI.DS ---
Discharge Summary Admission Date September 17, 2016 at 02:53 Discharge Date: September 18, 2016 Admitting Diagnosis Pulmonary Edema, Afib RVR, Hyponatremia, Hypoxic respiratory failure (1) Acute respiratory failure with hypoxia ICD Code: J96.01 Diagnosis: Principal (2) Abdominal pain ICD Code: R10.9 Diagnosis: Principal (3) Pulmonary edema ICD Code: J81.1 Diagnosis: Principal Procedures None Brief History - From Admission 86-year-old female with history of hypertension dyslipidemia diabetes status post CABG 4 vessels presented with abdominal pain. Patient was taken to CAT scan that shows nonobstructive pattern with mild ileus. She was started on IV fluids resuscitation, however developed rapid A. fib with RVR mild to moderate pleural pulmonary edema on the x-ray and respiratory distress requiring diuresis and BiPAP. CBC/BMP: 09/18/16 0512 09/18/16 0512 Significant Findings Laboratory Tests Test 09/16/16 09/17/16 09/17/16 09/17/16 23:00 00:31 01:50 01:51 Sodium Level 123 MEQ/L (136-145) Chloride Level 89 MEQ/L (98-107) Estimat Glomerular Filtration 61 ML/MIN (>89) Rate Random Glucose 111 MG/DL (74-106) Albumin 3.3 GM/DL (3.4-5.0) White Blood Count 13.6 TH/MM3 (4.0-11.0) Neutrophils (%) (Auto) 74.6 % (16.0-70.0) Neutrophils # (Auto) 10.1 TH/MM3 (1.8-7.7) B-Type Natriuretic Peptide 539 PG/ML (0-100) Urine Protein 30 mg/dL (NEG-TRACE) Prothrombin Time 11.7 SEC (9.8-11.6) Blood Gas HCO3 20 mmol/L (22-26) Blood Gas Base Excess -5.6 mmol/L (-2-2) Arterial Blood pH 7.26 (7.380-7.420) Arterial Blood Partial 46 mmHg (38-42) Pressure CO2 Test 09/17/16 09/17/16 09/18/16 02:45 03:43 05:12 Sodium Level 123 MEQ/L 128 MEQ/L (136-145) (136-145) Chloride Level 89 MEQ/L 93 MEQ/L (98-107) (98-107) Creatinine 1.03 MG/DL 1.06 MG/DL (0.50-1.00) (0.50-1.00) Estimat Glomerular Filtration 51 ML/MIN (>89) 49 ML/MIN (>89) Rate Random Glucose 206 MG/DL (74-106) Blood Gas HCO3 21 mmol/L (22-26) Blood Gas Base Excess -3.6 mmol/L (-2-2) Arterial Blood pH 7.36 (7.380-7.420) Red Blood Count 3.56 MIL/MM3 (4.00-5.30) Hemoglobin 10.3 GM/DL (11.6-15.3) Hematocrit 30.3 % (35.0-46.0) Prothrombin Time 11.7 SEC (9.8-11.6) Blood Urea Nitrogen 19 MG/DL (7-18) Albumin 3.1 GM/DL (3.4-5.0) Imaging Last Impressions Chest X-Ray 09/18/16 0000 Signed Impressions: Service Date/Time: September 06:48 - CONCLUSION: Possible mild bibasilar infiltrate. Tyson Tellez MD Abdomen/Pelvis CT 09/17/16 0000 Signed Impressions: Service Date/Time: Saturday, September 17, 2016 01:15 - CONCLUSION: 1. Small bilateral pleural effusions. 2. Bilateral renal cortical scarring. 3. Moderate-sized hiatal hernia. 4. Status post median sternotomy with mild cardiomegaly. 5. Nonobstructive bowel gas pattern with multiple loops of nondilated air-containing small bowel several small air-fluid levels which may represent a mild ileus and/or gastroenteritis. 6. Small right ovarian cystic lesion. Frederick Vargas MD PE at Discharge GENERAL: Well-developed obese in no distress SKIN: Warm and dry. HEAD: Atraumatic. Normocephalic. EYES: Pupils equal and round. No scleral icterus. No injection or drainage. ENT: No nasal bleeding or discharge. Mucous membranes pink and moist. NECK: Trachea midline. No JVD. CARDIOVASCULAR: Regular rate and rhythm. RESPIRATORY: No accessory muscle use. Clear to auscultation. Breath sounds equal bilaterally. GASTROINTESTINAL: Abdomen soft, non-tender, nondistended. MUSCULOSKELETAL: Extremities without clubbing, cyanosis, or edema. No obvious deformities. NEUROLOGICAL: Awake and alert. No obvious cranial nerve deficits. Motor grossly within normal limits. Five out of 5 muscle strength in the arms and legs. Normal speech. PSYCHIATRIC: Appropriate mood and affect; insight and judgment normal. Hospital Course Respiratory failure. Resolved - Pulmonary edema secondary to A. fib. Resolved - Rate controlled - Gentle diuresis - Status post BiPAP as needed - 2-D echo results pending Rapid A. fib with RVR - Corrected with Cardizem IV push bolus - Resume home dose of metoprolol and Cardizem - Continue anticoagulation with Eliquis Abdominal pain likely related to ileus. Avoid narcotics - Improved - CT abdomen noted - Dulcolax Colace for bowel regimen - Supportive care Diabetes mellitus - Insulin sliding scale Hyponatremia acute on chronic. Improving. Patient asymptomatic. Refuses head CT. Continue sodium tabs follow-up outpatient DVT GI prophylaxis - Eliquis/PPI Pt Condition on Discharge: Stable Discharge Disposition: Discharge Home Discharge Time: > 30 minutes Discharge Instructions DIET: Follow Instructions for: Diabetic Diet Activities you can perform: Regular-No Restrictions Activities to Avoid: Driving Follow up Referrals: Cardiology - 1 Week PCP Follow-up - 1 Week New Orders: BASIC METABOLIC PROF - 09/22/16 CT Brain W/O Contrast - 09/22/16 New Medications: Diltiazem (Cardizem) 30 Mg Tab 30 MG PO QID Regulate Heart Beat #120 TAB Mirtazapine (Mirtazapine) 15 Mg Tab 15 MG PO HS Control Depression #30 TAB Sodium Chloride (Sodium Chloride) 1 Gm Tab 1 GM PO BID Electrolyte Replacement #14 TAB Thiamine (Vitamin B-1) 100 Mg Tab 100 MG PO DAILY Alcohol Detox #30 TAB Continued Medications: Apixaban (Eliquis) 5 Mg Tab 5 MG PO BID Blood Clot Prevention #60 Ref 0 TAB Dexlansoprazole (Dexilant) 60 Mg Cap 60 MG PO DAILY #30 Ref 0 CAP Furosemide (Furosemide) 20 Mg Tab 20 MG PO DAILY #30 Ref 0 TAB Glimepiride (Glimepiride) 1 Mg Tab 1 MG PO DAILY Take with breakfast or first main meal Blood Sugar Management #30 Ref 0 TAB Isosorbide Mononitrate (Isosorbide Mononitrate) 10 Mg Tab 30 MG PO DAILY Take 2 doses 7 hours apart. Prevent Chest Pain #60 TAB Lubiprostone (Amitiza) 8 Mcg Cap 8 MG PO BID Constipation Ref 0 CAP Metoprolol Tartrate (Metoprolol Tartrate) 50 Mg Tab 50 MG PO TID #60 Ref 0 TAB Ondansetron (Zofran) 4 Mg Tab 4 MG PO Q6HR PRN NAUSEA OR VOMITING Ref 0 TAB Valsartan (Valsartan) 80 Mg Tab 80 MG PO BID #60 Ref 0 TAB Micah Montiel MD September 18, 2016 11:47
--- NOTE | 2016-09-18 12:57 | EC ---
Study Study Date:09/17/2016 STUDY CONCLUSIONS SUMMARY - Left ventricle: The cavity size was normal. Wall thickness was increased in a pattern of mild LVH. Systolic function was normal. The estimated ejection fraction was 60%. Wall motion was normal; there were no regional wall motion abnormalities. - Aortic valve: Valve area: 1.07cm^2 (Vmax). - Mitral valve: Mildly calcified annulus. Mild regurgitation. If LV function is below 40, please consider prescribing an ACEI or ARB or document rationale for non-use. PROCEDURE DATA STUDY STATUS: Elective. Procedure: Transthoracic echocardiography. Image quality was good. Scanning was performed from the parasternal, apical, and subcostal acoustic windows. Study completion: The patient tolerated the procedure well. Transthoracic echocardiography. M-mode, complete 2D, complete spectral Doppler, and color Doppler. Height: Height: 64in. Weight: Weight: 142.7lb. Body mass index: BMI: 24.5kg/m^2. Body surface area: BSA: 1.7m^2. Patient status: Inpatient. CARDIAC ANATOMY LEFT VENTRICLE: The cavity size was normal. Wall thickness was increased in a pattern of mild LVH. Systolic function was normal. The estimated ejection fraction was 60%. Wall motion was normal; there were no regional wall motion abnormalities. AORTIC VALVE: Trileaflet; moderately thickened, moderately calcified leaflets. Doppler: Transvalvular velocity was within the normal range. There was no stenosis. No regurgitation. Valve area: 1.07cm^2 (Vmax). Indexed valve area: 0.63cm^2/m^2 (Vmax). Peak gradient: 14mm Hg (S). AORTA: Aortic root: The aortic root was normal in size. MITRAL VALVE: Mildly calcified annulus. Doppler: Transvalvular velocity was within the normal range. There was no evidence for stenosis. Mild regurgitation. Valve area by pressure half-time: 6.47cm^2. Indexed valve area by pressure half-time: 3.81cm^2/m^2. Mean gradient: 2mm Hg (D). Peak gradient: 7mm Hg (D). LEFT ATRIUM: The atrium was normal in size. RIGHT VENTRICLE: The cavity size was normal. Wall thickness was normal. PULMONIC VALVE: Doppler: Transvalvular velocity was within the normal range. There was no evidence for stenosis. No regurgitation. TRICUSPID VALVE: Structurally normal valve. Doppler: Transvalvular velocity was within the normal range. Trace regurgitation. Peak gradient: 20mm Hg (D). PULMONARY ARTERY: The main pulmonary artery was normal-sized. Systolic pressure was within the normal range. RIGHT ATRIUM: The atrium was normal in size. PERICARDIUM: There was no pericardial effusion. SYSTEMIC VEINS: Inferior vena cava: The vessel was normal in size. Patient weight: 142.7lb _Ejection fraction:_ 65-75% _Fractional shortening:_ 32% up to 5Kg 5-11.5Kg 11.6-22.9Kg 23-45Kg 45-57Kg Aortic Root 7-13 <17 13-22 17-27 17-27 LA diam 6-13 <23 24-38 33-47 37-40 RVID 10-17 7-15 7-15 7-18 8-17 LVIDd 12-22 <32 24-38 33-47 37-40 LVPW 2-4 3-6 5-7 6-8 7-8 IVS 2-4 3-6 5-7 6-8 7-8 BASIC MEASUREMENTS ADULT NORMAL Left ventricle LV internal dimension, ED, chordal 49.3 mm 43-52 level, PLAX LV internal dimension, ES, chordal 38 mm 23-38 level, PLAX Fractional shortening, chordal level, *23 % >29 PLAX LV posterior wall thickness, ED 11.5 mm IVS/LVPW ratio, ED 0.99 <1.3 Volume, ED, MOD, 1-plane 72 ml Volume, ES, MOD, 1-plane 27 ml Ejection fraction, MOD, 1-plane 63 % Stroke volume, MOD, 1-plane 45 ml Volume index, ED, MOD, 1-plane 42 ml/m^2 Volume index, ES, MOD, 1-plane 16 ml/m^2 Stroke index, MOD, 1-plane 26.5 ml/m^2 Ventricular septum Septal thickness, ED 11.4 mm Aortic valve Leaflet separation *12 mm 15-26 Left atrium Anterior-posterior dimension 39 mm Anterior-posterior dimension index *2.29 cm/m^2 <2.2 Right ventricle RV internal dimension, ED, PLAX 23.1 mm 19-38 BASIC MEASUREMENTS ADULT NORMAL Aortic valve Leaflet separation *12 mm 15-26 Aorta Root diameter, ED 28 mm 20-37 Left atrium Anterior-posterior dimension, ES 37 mm 19-40 Anterior-posterior dimension index, ES 2.18 cm/m^2 <2.2 LA/aortic root ratio 1.32 DOPPLER MEASUREMENTS ADULT NORMAL Aortic valve Peak velocity, S 187 cm/s VTI, S 30.2 cm Peak gradient, S 14 mm Hg Valve area, Vmax 1.07 cm^2 Valve area index, Vmax 0.63 cm^2/m^2 Mitral valve Mean velocity, D 64.6 cm/s Pressure half-time 34 ms Mean gradient, D 2 mm Hg Peak gradient, D 7 mm Hg Valve area, pressure half-time 6.47 cm^2 Valve area index, pressure half-time 3.81 cm^2/m^2 Tricuspid valve Peak gradient, D 20 mm Hg Maximal inflow velocity 223 cm/s Systemic veins Estimated CVP 10 mm Hg Pulmonic valve Peak velocity, S 78.7 cm/s Acceleration time 303 ms LEGEND: Mean values are shown as u=mean value. Asterisk (*) engle values outside specified normal range. Prepared and signed by Arnaldo Zaldivar [id number]
[2016-09-18] MEDS ORDERED: MIRTAZAPINE 15 MG TAB PO SCH (21:00)
== END 2016-09-18 12:52 | disposition home or self-care (01) | DRG 189 ==
LOC: NEPC 22:22 → NEDA 09-17 02:53 → N03A 09-17 05:39 → N04B 09-17 13:29
PROVIDERS: ADMIT Internal Medicine; ATTEND Internal Medicine
PROC: 5A09357 Assistance with Respiratory Ventilation, Less than 24 Consecutive Hours, Continuous Positive Airway Pressure (ICD-10-PCS; principal; 2016-09-17)
DX: J96.01 Acute respiratory failure with hypoxia (principal); K56.7 Ileus, unspecified; I11.0 Hypertensive heart disease with heart failure; I50.9 Heart failure, unspecified; E87.1 Hypo-osmolality and hyponatremia; I48.0 Paroxysmal atrial fibrillation; E11.9 Type 2 diabetes mellitus without complications; M19.90 Unspecified osteoarthritis, unspecified site; I25.2 Old myocardial infarction; I25.10 Atherosclerotic heart disease of native coronary artery without angina pectoris; E78.5 Hyperlipidemia, unspecified; Z72.0 Tobacco use; Z79.01 Long term (current) use of anticoagulants; Z79.84 Long term (current) use of oral hypoglycemic drugs; Z88.5 Allergy status to narcotic agent; Z95.1 Presence of aortocoronary bypass graft
CPT/HCPCS: 36600; 71010; 74177; 80053; 81001; 82805; 82948; 83605; 83690; 83735; 83880; 84100; 84484; 85025; 85610; 85730; 93005; 93306; 94002; 96361; 96374; 96375; J1644; J1885; J1940; J2270; J2405; J7040; Q9967